=== PATIENT | female | born 1975 | race African-American/Black ===

== ENCOUNTER 2016-10-14 15:09 | Emergency (ER) | payer SELFPAY ==
[2016-10-14] MEDS ORDERED: KETOROLAC 60 MG/2 ML VIAL IM ONE (16:57)
== END 2016-10-14 18:53 | disposition home or self-care (01) ==
LOC: ER 15:37
DX: M19.071 Primary osteoarthritis, right ankle and foot (principal)
CPT/HCPCS: 36415; 80053; 84550; 85025; 85652; 96372